=== PATIENT | female | born 1985 | race Hispanic/Latino ===

== ENCOUNTER 2020-05-31 18:30 | Emergency (ER) | payer OTHER ==
[2020-05-31] MEDS ORDERED: Dexamethasone 4 mg/ml Vial ONE (19:45)
[2020-05-31] MEDS ORDERED: Ibuprofen 200 MG TAB ONE (19:45)
== END 2020-05-31 21:20 | disposition home or self-care (01) ==
LOC: ERS 18:30
DX: J02.0 Streptococcal pharyngitis (principal); I10 Essential (primary) hypertension
CPT/HCPCS: 87430; 99283; J1100